=== PATIENT | male | born 1995 | race African-American/Black ===

== ENCOUNTER 2017-11-09 14:08 | Emergency (ER) | payer MEDICAID ==
[~2017-11-09] VITALS: Ht 170.2 cm; Wt 70.0 kg
[2017-11-09 14:13] VITALS: BP 109/55
== END 2017-11-09 17:57 | disposition left against medical advice (07) ==
LOC: ER 14:31
DX: R11.2 Nausea with vomiting, unspecified (principal); Z53.21 Procedure and treatment not carried out due to patient leaving prior to being seen by health care provider

== ENCOUNTER 2019-03-02 20:58 | Emergency (ER) | payer MEDICAID ==
[~2019-03-02] VITALS: Ht 160 cm; Wt 64.0 kg
[2019-03-03] MEDS ORDERED: HYDROCODONE/ACETAMINOPHEN 5/325MG TABLET PO ONE (00:30)
[2019-03-03 04:40] VITALS: BP 122/74
== END 2019-03-03 04:42 | disposition home or self-care (01) ==
LOC: ER 21:05
DX: S83.92XA Sprain of unspecified site of left knee, initial encounter (principal); M79.605 Pain in left leg; M79.672 Pain in left foot; W01.0XXA Fall on same level from slipping, tripping and stumbling without subsequent striking against object, initial encounter; Y93.89 Activity, other specified; Y92.89 Other specified places as the place of occurrence of the external cause; Y99.8 Other external cause status
CPT/HCPCS: 73502; 73564; 73610; 73630; 99283

== ENCOUNTER 2023-10-23 14:28 | Emergency (ER) | payer MEDICAID ==
[~2023-10-23] VITALS: Ht 175.3 cm; Wt 72.0 kg
[2023-10-23 14:29] VITALS: BP 118/91; PULSE 75; RESP 16; TEMP 97.9; O2SAT 100
[2023-10-23] MEDS: ONDANSETRON HCL 4MG/2ML INJ IV STA (15:08)
[2023-10-23] MEDS: SODIUM CHLORIDE 0.9% 1,000 ML IV ONE ×2 (15:08→16:00)
[2023-10-23] MEDS: FAMOTIDINE 20MG/2ML VIAL IV ONE (15:08)
[2023-10-23 15:09] LABS: CHLORIDE 108 mEq/L (98-107); POTASSIUM 3.4 mEq/L (3.5-5.1); SODIUM 144 mEq/L (136-145)
[2023-10-23 15:10] LABS: BASOPHILS % 0.3 % (0.0-2.0); CARBON DIOXIDE 16 mEq/L (21-32); EOSINOPHILS % 0.1 % (0.0-5.0); HEMATOCRIT. 44.7 % (42.0-52.0); HEMOGLOBIN. 14.4 g/dL (14.0-18.0); LYMPHOCYTES % 10.6 % (20.0-50.0); MEAN CORPUSCULAR HEMOGLOBIN 28.9 pg (28.0-32.0); MEAN CORPUSCULAR HGB CONC 32.3 g/dL (31.0-37.0); MEAN CORPUSCULAR VOLUME 89.6 fL (80.0-94.0); MEAN PLATELET VOLUME 8.3 fl (7.4-10.4); PLATELET 266 x1000/uL (130-400); RED BLOOD CELL COUNT 4.99 mill/uL (4.7-6.1); RED CELL DISTRIBUTION WIDTH 14.1 % (11.6-14.6); WHITE BLOOD COUNT 23.3 x1000/uL (4.5-11.0)
[2023-10-23 15:11] LABS: CALCIUM 10.1 mg/dL (8.7-10.4)
[2023-10-23 15:15] LABS: CREATININE 1.2 mg/dL (0.6-1.3)
[2023-10-23 15:16] LABS: GLUCOSE 70 mg/dL (70-105); UREA NITROGEN BLOOD 12 mg/dL (9-23)
[2023-10-23] MEDS ORDERED: FAMO40TA7 MT (16:54)
== END 2023-10-23 19:24 | disposition home or self-care (01) ==
LOC: ER 14:28
DX: R11.2 Nausea with vomiting, unspecified (principal)
CPT/HCPCS: 99284; 96374; 96361; 96375; 80048; 83690; 85025; 36415; J3490; J2405; J7030